=== PATIENT | male | born 1960 | race Two or more races ===

== ENCOUNTER 2024-06-25 16:10 | Inpatient (IN) | payer MEDICARE ==
[~2024-06-25] VITALS: Ht 180.3 cm; Wt 79.4 kg
[2024-06-25] MEDS ORDERED: MAG HYDROX/AL HYDROX/SIMETH 30 ML UDC PO PRN (17:00)
[2024-06-25] MEDS ORDERED: Z GUARD REMEDY 4 OZ OINT TP PRN (17:00)
[2024-06-25] MEDS ORDERED: MAGNESIUM HYDROXIDE 30 ML UDC PO PRN (17:00)
[2024-06-25] MEDS ORDERED: ACETAMINOPHEN 325 MG TABLET PO PRN (17:00)
[2024-06-25] MEDS ORDERED: ONDANSETRON HCL/PF 4 MG/2 ML VIAL IVP PRN (17:00)
[2024-06-25] MEDS ORDERED: PHEN100C4 PO (17:56)
[2024-06-25] MEDS ORDERED: HYDR-3972 PO (17:56)
[2024-06-25] MEDS ORDERED: ATOR40TA PO (17:56)
[2024-06-25 18:10] LABS: BASOPHILS % (AUTO) 0.2 % (0.0-2.0); EOSINOPHILS % (AUTO) 0.4 % (0.0-6.0); HEMATOCRIT 37 % (39-51); HEMOGLOBIN 12.4 g/dL (13.5-17.5); LYMPHOCYTES # (AUTO) 1.2 K/uL (0.8-4.8); LYMPHOCYTES % (AUTO) 17.3 % (20.0-44.0); MEAN CORPUSCULAR HEMOGLOBIN 29 PG (26.0-33.0); MEAN CORPUSCULAR HGB CONC 33 g/dl (31.0-36.0); MEAN CORPUSCULAR VOLUME 87 fL (80-96); MONOCYTES # (AUTO) 0.8 K/uL (0.1-1.30); MONOCYTES % (AUTO) 11.8 % (2.0-12.0); NEUTROPHILS # (AUTO) 4.9 K/uL (1.8-8.9); NEUTROPHILS % (AUTO) 70.3 % (43.0-81.0); PLATELET COUNT (AUTO) 262 K/uL (150-450); RED BLOOD CELL COUNT(AUTO) 4.27 MIL/uL (4.5-6.0); RED CELL DISTRIBUTION WIDTH 14.9 % (11.5-15.0)
[2024-06-25 18:22] LABS: CALCIUM, SERUM 8.6 mg/dL (8.5-10.1); CREATININE 0.8 mg/dL (0.6-1.3); MAGNESIUM 2.3 mg/dL (1.8-2.4); PHOSPHORUS 2.7 mg/dL (2.5-4.9); POTASSIUM 4.2 mmol/L (3.5-5.1)
[2024-06-25 18:26] LABS: PHENYTOIN (DILANTIN) 35.4 ug/ml (10.0-20.0)
[2024-06-25] MEDS: MORPHINE SULFATE INJ 2 MG/ML DISP.SYRIN IV PRN (18:44)
[2024-06-25 20:00] VITALS: BP 139/79; TEMP 98.4; O2SAT 95
[2024-06-25] MEDS: CELECOXIB 100 MG CAPSULE PO SCH (20:15)
[2024-06-25] MEDS: HYDROCODONE/APAP 5/325MG TABLET PO PRN (21:24)
[2024-06-25 21:34] VITALS: BP 139/79; TEMP 98.2; O2SAT 95
[2024-06-25] MEDS ORDERED: PHENYTOIN EXTENDED RELEASE 100 MG CAPSULE PO SCH (22:00)
[2024-06-26] MEDS: PHENYTOIN EXTENDED RELEASE 100 MG CAPSULE PO SCH (04:30)
[2024-06-26 07:20] LABS: BASOPHILS % (AUTO) 0.3 % (0.0-2.0); EOSINOPHILS # (AUTO) 0.1 K/uL (0.0-0.7); EOSINOPHILS % (AUTO) 1.1 % (0.0-6.0); HEMATOCRIT 35 % (39-51); HEMOGLOBIN 12.3 g/dL (13.5-17.5); LYMPHOCYTES # (AUTO) 1.5 K/uL (0.8-4.8); LYMPHOCYTES % (AUTO) 26.6 % (20.0-44.0); MEAN CORPUSCULAR HEMOGLOBIN 30 PG (26.0-33.0); MEAN CORPUSCULAR HGB CONC 35 g/dl (31.0-36.0); MEAN CORPUSCULAR VOLUME 86 fL (80-96); MONOCYTES # (AUTO) 0.7 K/uL (0.1-1.30); MONOCYTES % (AUTO) 13.1 % (2.0-12.0); NEUTROPHILS # (AUTO) 3.2 K/uL (1.8-8.9); NEUTROPHILS % (AUTO) 58.9 % (43.0-81.0); PLATELET COUNT (AUTO) 236 K/uL (150-450); RED BLOOD CELL COUNT(AUTO) 4.06 MIL/uL (4.5-6.0); RED CELL DISTRIBUTION WIDTH 14.9 % (11.5-15.0); WHITE BLOOD COUNT (AUTO) 5.5 K/uL (4.3-11.0)
[2024-06-26 07:26] LABS: CALCIUM, SERUM 8.6 mg/dL (8.5-10.1); CREATININE 0.8 mg/dL (0.6-1.3); MAGNESIUM 2.4 mg/dL (1.8-2.4); POTASSIUM 4.5 mmol/L (3.5-5.1)
[2024-06-26 07:30] VITALS: BP 132/83; TEMP 97.5; O2SAT 94
[2024-06-26 16:00] VITALS: BP 118/74; TEMP 98.4; O2SAT 95
[2024-06-26 16:20] LABS: THYROID STIMULATING HORMONE 2.62 uIU/mL (0.358-3.74)
[2024-06-26 20:00] VITALS: BP 113/73; TEMP 98.8; O2SAT 95
[2024-06-26] MEDS: ATORVASTATIN 40 MG TABLET PO SCH (21:03)
[2024-06-26 21:20] VITALS: BP 113/73; TEMP 98.8; O2SAT 95
[2024-06-27 08:00] VITALS: BP 106/77; TEMP 98.1; O2SAT 96
[2024-06-27 16:00] VITALS: BP 103/70; TEMP 97.9; O2SAT 96
[2024-06-27 21:52] VITALS: BP 111/67; TEMP 98.4; O2SAT 100
[2024-06-28 06:07] LABS: FOLIC ACID 4.8 ng/mL (>3.0)
[2024-06-28 08:00] VITALS: BP 116/78; TEMP 98.2; O2SAT 96
[2024-06-28 08:30] VITALS: BP 116/78; TEMP 98.2; O2SAT 96
[2024-06-28 16:00] VITALS: BP 113/75; TEMP 98.2; O2SAT 96
[2024-06-28 20:58] VITALS: BP 131/89; TEMP 98.2; O2SAT 94
[2024-06-29 08:00] VITALS: BP 116/68; TEMP 97.6; O2SAT 98
[2024-06-29] MEDS ORDERED: Hydrocodone/Apap 5/325MG PO (12:31)
[2024-06-29] MEDS ORDERED: PHEN100C4 PO (12:31)
[2024-06-29] MEDS ORDERED: CELE100C PO (12:31)
[2024-06-29 16:00] VITALS: BP 121/74; TEMP 98.4; O2SAT 96
[2024-06-29] MEDS ORDERED: PHENYTOIN EXTENDED RELEASE 100 MG CAPSULE PO SCH ×2 (21:00)
[2024-06-29] MEDS ORDERED: PHENYTOIN SUSP UDC 100 MG/4 ML UDC PO SCH (21:00)
== END 2024-06-29 17:14 | DRG 83 ==
LOC: TELE 16:10 → MED 16:51
PROVIDERS: ADMIT Nurse Practitioner Acute Care; ATTEND Nurse Practitioner Acute Care
DX: S06.9XAA Unspecified intracranial injury with loss of consciousness status unknown, initial encounter (principal); S22.42XA Multiple fractures of ribs, left side, initial encounter for closed fracture; Z59.00 Homelessness unspecified; G40.909 Epilepsy, unspecified, not intractable, without status epilepticus; E78.5 Hyperlipidemia, unspecified; Y08.89XA Assault by other specified means, initial encounter; I25.10 Atherosclerotic heart disease of native coronary artery without angina pectoris; Y92.89 Other specified places as the place of occurrence of the external cause; Z95.5 Presence of coronary angioplasty implant and graft; Z98.890 Other specified postprocedural states; Z87.820 Personal history of traumatic brain injury; T42.6X5A Adverse effect of other antiepileptic and sedative-hypnotic drugs, initial encounter; Y92.9 Unspecified place or not applicable
CPT/HCPCS: 36415; 70450-TC; 71045-TC; 80048-TC; 80185-TC; 82306; 82607-TC; 83735-TC; 83921; 84100-TC; 84425; 84443-TC; 85025-TC; 87081-TC; 94799-TC; 97116-TC; 97530-TC; G0378; J2270